=== PATIENT | male | born 1985 | race Caucasian/White ===

== ENCOUNTER 2017-10-09 13:57 | Day surgery (SDC) | END 2017-10-09 19:54 | disposition home or self-care (01) ==

== ENCOUNTER 2018-07-08 14:20 | Day surgery (SDC) | payer SELFPAY ==
[~2018-07-08] VITALS: Ht 180.3 cm; Wt 152.3 kg
[2018-07-08] VITALS (13 sets, daily range): BP systolic 132–155; BP diastolic 68–86; PULSE 89–110; RESP 12–23; Ht 180.3 cm; Wt 152.3 kg
[~2018-07-08 14:20] MED LIST: CEFAZOLIN 1 GM INJ ONE; CEFAZOLIN 2 GM/50 ML (PMX) 50 ML IVPB SCH; GLYCOPYRROLATE 0.4 MG INJ ONE; LACTATED RINGER'S 1,000 ML IV* SCH; LOSA1TAB22 PO; NEOSTIGMINE 3 MG/3 ML SYRINGE ONE; SUCCINYLCHOLINE CHLORIDE 100 MG/5 ML SYG IV ONE
[2018-07-08] MEDS ORDERED: AMLO5TAB4 PO (14:57)
[2018-07-08] MEDS ORDERED: LOSA1TAB25 PO (14:58)
--- NOTE | 2018-07-08 16:31 | HPN ---
Date/Time of Note Date/Time of Note DATE: 07/08/18 TIME: 16:31 Interval H&P Admission Note Pt. seen H&P reviewed: No system changes JIMMY SHABAZZ Jul 08, 2018 16:31
--- NOTE | 2018-07-08 16:33 | PREAC ---
Date/Time of Note Date/Time of Note DATE: 07/08/18 TIME: 16:30 Anesthesia Eval and Record Evaluation Time Pre-Procedure Interview DATE: 07/08/18 TIME: 16:30 Age 32 Sex male NPO: 8 hrs Preoperative diagnosis elbow fx Planned procedure elbow tendon repair Past Medical History Past Medical History: Includes Cardio: HTN GI: Morbid obesity Surgery & Anesthesia Issues No known issue Meds Anticoagulation: No Beta Nils within 24 hr: No Reason Beta Nils not given: Pt. not on B-Nils Reported Medications Losartan-Hydrochlorothiazide (Losartan-HCTZ) 100-25 Mg Tab, 1 TAB PO DAILY, TAB 07/08/18 Amlodipine Besylate* (Norvasc*) 5 Mg Tablet, 5 MG PO DAILY, TAB 07/08/18 Discontinued Reported Medications Losartan-Hydrochlorothiazide (Losartan-HCTZ) 50-12.5 Mg Tab, 1 TAB PO DAILY, TAB 10/09/17 Current Medications Lactated Ringer's 1,000 ml @ 20 mls/hr Q24H IV* ; Start 07/08/18 at 07:00; Stop 07/10/18 at 08:59 Meds reviewed: Yes Allergies Coded Allergies: No Known Allergies (Verified Allergy, Unknown, 07/08/18) Allergies Reviewed: Yes Labs/Studies Labs Reviewed: Reviewed by anesthesiologist test: N/A Pre-procedure Exam Last vitals Vital Signs Date Temp Pulse Resp B/P (MAP) Pulse Ox O2 O2 Flow FiO2 Time Delivery Rate 07/08/18 96.8 108 16 143/83 99 Room Air 15:20 (103) Airway: Adequate mouth opening, Adequate thyromental dist Mallampati: Mallampati IV Teeth: Normal Lung: Normal Heart: Normal ASA Physical Status ASA physical status: 2 Emergency: None Pre-operative Attestations Prior to commencing anesthesia and surgery, the patient was re-evaluated, there was verification of: *The patient's identity *The results of appropriate recent lab work and preoperative vital signs *The above evaluation not changing prior to induction *Anesthetic plan, risk benefits, alternative and complications discussed with patient/family; questions answered; patient/family understands, accepts and wishes to proceed. LYNNE SKINNER DO Jul 08, 2018 16:33
[2018-07-08] MEDS ORDERED: MIDAZOLAM 1 MG/ML 2 ML INJ ONE (16:38)
[2018-07-08] MEDS ORDERED: ROCURONIUM 50 MG INJ ONE (16:38)
[2018-07-08] MEDS ORDERED: LIDOCAINE 1% (MDV) 20 ML INJ ONE (16:38)
[2018-07-08] MEDS ORDERED: PROPOFOL 20 ML ONE (16:38)
[2018-07-08] MEDS ORDERED: DEXAMETHASONE 4 MG/ML 5 ML INJ ONE (16:43)
[2018-07-08] MEDS ORDERED: ROPIVACAINE 0.5 % 30 ML VIAL ONE (16:43)
[2018-07-08] MEDS ORDERED: POLYMYXIN/BACITRACIN 1L IRRIG ONE (17:37)
[2018-07-08] MEDS ORDERED: KETOROLAC 30 MG INJ ONE (18:29)
[2018-07-08] MEDS ORDERED: PROVENTIL HFA 6.7GM INHALER ONE (18:29)
[2018-07-08] MEDS ORDERED: EPINEPHrine 100 MCG/10 ML SYG IV ONE (18:29)
--- NOTE | 2018-07-08 18:31 | OPPN ---
Date/Time of Note Date/Time of Note DATE: 07/08/18 TIME: 18:31 Operative Report Preoperative Diagnosis left distal triceps rupture, chronic Postoperative Diagnosis left distal triceps rupture, chronic Operation/Procedure Performed left distal triceps rupture, chronic-- repair Surgeon see signature line assistant director of admissions none Anesthesia: general Estimated blood loss: 0 - 10 ml's Transfusion Required none Specimen none Grafts/Implants none Complications none JIMMY SHABAZZ Jul 08, 2018 18:31
--- NOTE | 2018-07-08 18:47 | PAC ---
Date/Time of Note Date/Time of Note DATE: 07/08/18 TIME: 18:46 Post-Anesthesia Notes Post-Anesthesia Note Last documented vital signs Vital Signs Date Temp Pulse Resp B/P (MAP) Pulse Ox O2 O2 Flow FiO2 Time Delivery Rate 07/08/18 98 95 16 120/65 99 Room Air 1850 Activity: WNL Respiratory function: WNL Cardiovascular function: WNL Mental status: Baseline Pain reasonably controlled: Yes Hydration appropriate: Yes Nausea/Vomiting absent: Yes LYNNE SKINNER DO Jul 08, 2018 18:47
[2018-07-08] MEDS ORDERED: HYDROmorphONE 1 MG/5 ML IV SYRINGE IV ONE (18:54)
[2018-07-08] MEDS ORDERED: OXYCODONE/ACETAMINOPHEN (5/325) TAB PO PRN ×2 (19:00)
[2018-07-08] MEDS ORDERED: HYDROmorphONE 1 MG/5 ML IV SYRINGE IV PRN ×2 (19:00)
--- NOTE | 2018-07-08 19:03 | OPR ---
DATE OF OPERATION: 07/08/2018 SURGEON: Jorge Garcia MD ANESTHESIA: General plus peripheral nerve block. PREOPERATIVE DIAGNOSIS: Left elbow distal triceps tendon rupture, chronic. POSTOPERATIVE DIAGNOSIS: Left elbow distal triceps tendon rupture, chronic. PROCEDURE: Repair of left elbow distal triceps tendon rupture, chronic. OPERATIVE FINDINGS: Retraction of distal triceps tendon with a partial tendon rupture. INDICATION FOR PROCEDURE: This is a 32-year-old male with multiple surgeries to the left elbow, who underwent previous left distal triceps tendon repair. He had limited strength and there was concern for re-rupture or laxity of the previous repair. Given this and despite extensive conservative management including physical therapy, the patient did not improve. He elected to proceed with surgical intervention, understanding risks and benefits. DESCRIPTION OF PROCEDURE: The patient was seen in the preoperative area and all further questions were answered. Again, he gave informed consent understanding risks and benefits. The patient was taken to operative suite, placed in supine position. He was placed under general anesthesia and a peripheral nerve block was performed by the anesthesia team. The patient was transferred to the lateral position and placed under general anesthesia. Tourniquet was placed on left upper extremity. Ancef was given IV and left upper extremity was prepped with ChloraPrep stick and draped in usual sterile fashion. Esmarch bandage was used to exsanguinate the extremity and tourniquet inflated to 250 mmHg. The previous surgical incision was utilized. The posterior aspect of the left elbow with sharp dissection was carried down through skin and subcutaneous tissue. Knife dissection divided the soft tissues overlying the triceps tendon which was identified in the midline. The medial and lateral borders of the triceps tendon were defined and its insertion at the olecranon was visualized. There was a partial rupture with slight retraction of the triceps mechanism. Given the laxity, decision was made to proceed with repair of the distal triceps tendon rupture. A drill hole was made in the olecranon transversely and a running locking whipstitch was passed proximally and backed distally on both the medial and lateral aspects of the tendon. The suture with a #1 FiberWire was passed through the transverse drill hole in the olecranon and with the elbow extended. The triceps tendon and musculature was tensioned and the sutures were tied over a bone bridge at the olecranon. There was excellent tension on the triceps tendon after repair. The wound was copiously irrigated and skin was closed with 4-0 nylon. Xeroform placed over the wound followed by sterile gauze, Webril and a long arm splint with the elbow in extension approximately 30 degrees of flexion total. A tourniquet deflated after 43 minutes and patient was awakened from anesthesia. He was taken the postoperative suite in stable condition, tolerated the procedure well without complication. SPECIMENS: None. ESTIMATED BLOOD LOSS: 5 mL. COUNTS: Sponge, instrument, needle counts correct. TOURNIQUET TIME: 43 minutes. CONDITION ON DISCHARGE: Stable. The patient was given a nonrefillable 5-day prescription for pain medication for surgery today. Dictated By: JORGE BANG/GONZALEZ Conf#: [id number] DID#: [id number] MTDD
== END 2018-07-08 19:38 | disposition home or self-care (01) ==
LOC: SDS 14:20
PROVIDERS: ATTEND Orthopaedic Surgery Hand Surgery
DX: S46.312D Strain of muscle, fascia and tendon of triceps, left arm, subsequent encounter (principal); X58.XXXD Exposure to other specified factors, subsequent encounter; I10 Essential (primary) hypertension; E66.01 Morbid (severe) obesity due to excess calories; Z68.42 Body mass index [BMI] 45.0-49.9, adult
CPT/HCPCS: 24341; J1100; J1170; J1885; J2250; J2795; J3010; J0171; J0690; J2710